=== PATIENT | female | born 1955 | race African-American/Black ===

== ENCOUNTER → 2017-03-17 | Day surgery (SDC) | payer OTHER ==
[~2017-03-17] MED LIST: ALDA2525 PO; BUPIVACAINE/EPINEPHRINE 0.25% 50 ML VIAL ONE; ENAL20TA PO; LACTATED RINGER'S 1000 ML INJ 1,000 ML ONE; METF500 PO; METO25TA3 PO; MIDAZOLAM HCL 2 MG/2 ML VIAL ONE; MOBI15TA PO; NIFE20 PO; ONDANSETRON HCL 4 MG/2 ML VIAL IV PUSH ONE; POTA75TA; PRAV40TA2 PO; PROPOFOL 200 MG/20 ML AMP IV ONE; SODIUM CHLORIDE 0.9% INJ 10 ML ONE; ULTR50TA5 PO; ZOFR4TAB PO; ceFAZolin INJ 1,000 MG VIAL ONE
--- NOTE | 2017-03-17 10:27 | TN ---
cc: CAROLINA PUTNAM M.D. DATE OF SURGERY: 03/17/2017 PREOPERATIVE DIAGNOSIS 2 cm chronic wound raised skin lesion, right knee. POSTOPERATIVE DIAGNOSIS 2 cm chronic wound raised skin lesion, right knee. PROCEDURE PERFORMED Wide local excision chronic wound raised skin lesion, right knee, 3 x 5 cm. SURGEON Carolina Putnam. ANESTHESIA General LMA with local. COMPLICATIONS None. INDICATION FOR PROCEDURE Ms. Mota is a pleasant 61-year-old female who had a very concerning raised skin lesion on her right knee that had been present for quite some time. It would intermittently bleed and itched quite frequently. 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 Because of her concern from previous skin cancer she was referred and evaluated. The patient was offered a wide local excision of the wound with negative margins. The patient was agreeable. The risks and benefits of wide excision was discussed with her and she was agreeable. DETAILS OF PROCEDURE The patient was identified, brought to the operating room and placed supine on the operating table. After adequate general anesthesia was achieved with LMA, the right knee was prepped and draped in a standard surgical fashion. 0.25% Marcaine was injected in the skin and subcutaneous tissue around the lesion. An elliptical skin incision, 3 x 5 cm, was used to excise the lesion to gross negative margins. The subcutaneous tissue was dissected with sharp dissection. The subcutaneous fat was excised directly underlying the lesion. The lesion was removed and labeled with a short stitch superior, long stitch lateral, and sent to pathology for analysis. The wound was then irrigated with normal saline solution. The wound was then closed in two layers using 3-0 Vicryl for the subcutaneous tissue and 4-0 Vicryl for the skin. Additional nylon stay sutures were placed in the lateral and midpoint portions of the wound in order to support it as it was directly overlying the knee and would be under tension when the patient walked. Once this was accomplished sterile dressings were applied. The patient tolerated the procedure well. She was awakened and brought to Recovery in stable condition. MD MALINDA Angelo/SHE /9:59 AM /10:13 AM
== END | disposition home or self-care (01) ==
LOC: ESDC 06:56
PROVIDERS: ATTEND Surgery Trauma Surgery
DX: B07.9 Viral wart, unspecified (principal)
CPT/HCPCS: 00400; 11406; 12032; 88305; J0690; J2250; J2405; J3010; J7120